=== PATIENT | female | born 1945 | race Caucasian/White ===

== ENCOUNTER 2021-07-07 09:08 | Outpatient (RCR) | payer MEDICARE ==
[2021-07-07 09:38] LABS: ALBUMIN 4.4 g/dL (3.4-4.8); POTASSIUM 3.8 mmol/L (3.5-5.1)
[2021-07-07 09:39] LABS: CALCIUM 10.2 mg/dL (8.3-10.5)
[2021-07-07 09:43] LABS: TOTAL BILIRUBIN 0.5 mg/dL (0.2-1.2)
== END 2021-10-05 | disposition home or self-care (01) ==
LOC: LAB
PROVIDERS: Family Medicine
DX: Z13.1 Encounter for screening for diabetes mellitus (principal); Z13.220 Encounter for screening for lipoid disorders; E03.9 Hypothyroidism, unspecified